=== PATIENT | male | born 1950 | race African-American/Black ===

== ENCOUNTER 2017-03-01 14:17 | Emergency (ER) | payer MEDICARE, MEDICAID ==
[~2017-03-01] VITALS: Ht 185.4 cm; Wt 105.0 kg
[~2017-03-01 14:17] MED LIST: MOTRIN200 MG PO
[2017-03-01] MEDS ORDERED: ABILIFY30 MG PO (15:01)
[2017-03-01] MEDS ORDERED: RISPERDAL0.5 MG PO (15:02)
[2017-03-01] MEDS ORDERED: OMEPRAZOLE10 MG PO (15:02)
[2017-03-01 15:11] LABS: HEMATOCRIT 38.8 % (39.0-50.0); HEMOGLOBIN 12.5 g/dl (14.0-18.0); IMMATURE GRANULOCYTES 0.5 % (0.0-1.0); MEAN CORPUSCULAR HGB CONC 32.2 g/L CALC (32.0-36.0); NEUT# 10.07 thou/uL (1.82-7.42); RED BLOOD COUNT 4.46 mill/uL (4.70-6.10)
[2017-03-01 15:23] LABS: ALBUMIN 3.4 g/dL (3.2-5.0); ALKALINE PHOSPHATASE 132 u/l (38-126); ANION GAP 12 (6-22 (CALC)); BILIRUBIN, TOTAL 0.7 mg/dL (0.0-1.4); BUN 11 mg/dL (8-23); BUN/CREATININE RATIO 17 (12-20 (CALC)); CALCIUM 8.6 mg/dL (8.4-10.2); CARBON DIOXIDE 34 mmol/l (22-30); CHLORIDE 99 mmol/l (95-108); CREATININE 0.7 mg/dL (0.7-1.3); GFR > 60 ML/MIN (>=60 (CALC)); GFR FOR AFR.AMER. > 60 ML/MIN (>=60 (CALC)); GLUCOSE 109 mg/dL (82-115); POTASSIUM 3.5 mmol/l (3.5-5.1); SGOT/AST 31 u/l (19-48); SGPT/ALT 27 u/l (11-66); SODIUM 141 mmol/l (137-146); TOTAL PROTEIN 6.9 g/dL (6.3-8.2)
[2017-03-01 15:36] LABS: MYOGLOBIN 28 ng/mL (0 - 121)
[2017-03-01 18:40] VITALS: BP 118/75
== END 2017-03-01 19:00 | disposition short-term general hospital (02) ==
LOC: ED 14:17
PROVIDERS: Emergency Medicine
DX: R91.8 Other nonspecific abnormal finding of lung field (principal); R09.02 Hypoxemia; R94.31 Abnormal electrocardiogram [ECG] [EKG]; R06.02 Shortness of breath; F17.200 Nicotine dependence, unspecified, uncomplicated; J90 Pleural effusion, not elsewhere classified
CPT/HCPCS: Q9967

== ENCOUNTER 2017-09-15 20:58 | Emergency (ER) | payer MEDICARE, MEDICAID ==
[~2017-09-15] VITALS: Ht 185.4 cm; Wt 94.2 kg
[~2017-09-15 20:58] MED LIST changes: +ABILIFY30 MG PO; +OMEPRAZOLE10 MG PO; +RISPERDAL0.5 MG PO
[2017-09-15] MEDS ORDERED: PROTONIX40 MG PO (22:19)
[2017-09-15] MEDS ORDERED: ZOFRAN4 M1 PO (22:19)
[2017-09-15 22:29] VITALS: BP 128/72
== END 2017-09-15 22:30 | disposition home or self-care (01) ==
LOC: ED 20:58
DX: K52.9 Noninfective gastroenteritis and colitis, unspecified (principal)

== ENCOUNTER 2017-11-03 10:44 | Emergency (ER) | payer MEDICARE, MEDICAID ==
[~2017-11-03] VITALS: Ht 185.4 cm; Wt 96.3 kg
[~2017-11-03 10:44] MED LIST changes: +PROTONIX40 MG PO; +ZOFRAN4 M1 PO
[2017-11-03] MEDS ORDERED: POLYTRIM OD (11:14)
[2017-11-03 11:25] VITALS: BP 131/73
== END 2017-11-03 11:28 | disposition home or self-care (01) ==
LOC: ED 10:44
DX: H10.9 Unspecified conjunctivitis (principal)

== ENCOUNTER 2018-03-21 22:10 | Inpatient (IN) | payer MEDICARE, MEDICAID ==
[~2018-03-21] VITALS: Ht 185.4 cm; Wt 90.7 kg
[~2018-03-21 22:10] MED LIST changes: +POLYTRIM OD
[2018-03-21] MEDS ORDERED: ABILIFY15 MG PO (22:28)
[2018-03-21] MEDS ORDERED: RISPERDAL1 MG PO (22:28)
[2018-03-21 22:57] LABS: HEMATOCRIT 44.2 % (39.0-50.0); HEMOGLOBIN 13.8 g/dl (14.0-18.0); IMMATURE GRANULOCYTES 0.3 % (0.0-1.0); MEAN CELL VOLUME 92.3 fL CALC (80.0-100.0); MEAN CORPUSCULAR HGB 28.8 pG CALC (26.0-32.0); MEAN CORPUSCULAR HGB CONC 31.2 g/L CALC (32.0-36.0); NEUT# 9.13 thou/uL (1.82-7.42); RED BLOOD COUNT 4.79 mill/uL (4.70-6.10); RED CELL DISTRI WIDTH 14.7 % (11.5-15.5)
[2018-03-21 23:07] LABS: ALBUMIN 3.7 g/dL (3.2-5.0); ALKALINE PHOSPHATASE 137 u/l (38-126); ANION GAP 8 (6-22 (CALC)); BILIRUBIN, TOTAL 0.4 mg/dL (0.0-1.4); BUN 11 mg/dL (8-23); BUN/CREATININE RATIO 17 (12-20 (CALC)); CARBON DIOXIDE 32 mmol/l (22-30); CHLORIDE 102 mmol/l (95-108); CREATININE 0.7 mg/dL (0.7-1.3); GFR > 60 ML/MIN (>=60 (CALC)); GFR FOR AFR.AMER. > 60 ML/MIN (>=60 (CALC)); SGOT/AST 18 u/l (19-48); SGPT/ALT 28 u/l (11-66); SODIUM 139 mmol/l (137-146); TOTAL PROTEIN 7.7 g/dL (6.3-8.2)
[2018-03-21 23:18] LABS: ACT PARTIAL THROMBO TIME 27.1 SECONDS (20.0-32.5); D-DIMER 10.24 mg/L (0.19-0.60); PROTHROMBIN TIME 10.8 SECONDS (9.0-12.5)
[2018-03-21 23:19] LABS: MYOGLOBIN 29 ng/mL (0 - 121)
[2018-03-22 03:40] VITALS: BP 142/88
[2018-03-22 04:53] LABS: HEMATOCRIT 45.1 % (39.0-50.0); HEMOGLOBIN 14.2 g/dl (14.0-18.0); IMMATURE GRANULOCYTES 0.4 % (0.0-1.0); MEAN CELL VOLUME 92.2 fL CALC (80.0-100.0); MEAN CORPUSCULAR HGB CONC 31.5 g/L CALC (32.0-36.0); NEUT# 8.37 thou/uL (1.82-7.42); RED BLOOD COUNT 4.89 mill/uL (4.70-6.10); RED CELL DISTRI WIDTH 14.6 % (11.5-15.5)
[2018-03-22 07:20] VITALS: BP 133/74
[2018-03-22 07:31] LABS: ANION GAP 9 (6-22 (CALC)); BUN 9 mg/dL (8-23); BUN/CREATININE RATIO 15 (12-20 (CALC)); CARBON DIOXIDE 32 mmol/l (22-30); CHLORIDE 103 mmol/l (95-108); CREATININE 0.6 mg/dL (0.7-1.3); GFR > 60 ML/MIN (>=60 (CALC)); GFR FOR AFR.AMER. > 60 ML/MIN (>=60 (CALC)); SODIUM 140 mmol/l (137-146)
[2018-03-22 07:32] LABS: POTASSIUM 3.7 mmol/l (3.5-5.1)
[2018-03-22 11:05] VITALS: BP 147/85
[2018-03-22 15:28] VITALS: BP 141/84
== END 2018-03-22 17:25 | disposition short-term general hospital (02) | DRG 176 ==
LOC: ED 22:10 → ED-I 03-22 02:20 → ED 03-22 02:38 → MS2 03-22 02:39
PROVIDERS: Family Medicine; ADMIT Internal Medicine; ATTEND Internal Medicine
DX: I26.99 Other pulmonary embolism without acute cor pulmonale (principal); C34.90 Malignant neoplasm of unspecified part of unspecified bronchus or lung; F20.0 Paranoid schizophrenia; R59.0 Localized enlarged lymph nodes; F17.210 Nicotine dependence, cigarettes, uncomplicated; F14.90 Cocaine use, unspecified, uncomplicated; M79.604 Pain in right leg; M79.89 Other specified soft tissue disorders; Z92.3 Personal history of irradiation; Z92.21 Personal history of antineoplastic chemotherapy

== ENCOUNTER 2018-05-09 14:22 | Emergency (ER) | payer MEDICARE, MEDICAID ==
[~2018-05-09] VITALS: Ht 185.4 cm; Wt 92.3 kg
[~2018-05-09 14:22] MED LIST changes: +ABILIFY15 MG PO; +RISPERDAL1 MG PO
[2018-05-09] MEDS ORDERED: PROCHLORPERAZINE5 MG PO (14:48)
[2018-05-09] MEDS ORDERED: OMEPRAZOLE10 MG PO (14:48)
[2018-05-09] MEDS ORDERED: DICLOFENAC SODI75 MG PO (14:49)
[2018-05-09] MEDS ORDERED: HYCAMTIN PO (14:50)
[2018-05-09 15:05] LABS: HEMATOCRIT 32.9 % (39.0-50.0); HEMOGLOBIN 10.3 g/dl (14.0-18.0); IMMATURE GRANULOCYTES 0.3 % (0.0-5.0); MEAN CELL VOLUME 88.4 fL CALC (80.0-100.0); MEAN CORPUSCULAR HGB 27.7 pG CALC (26.0-32.0); MEAN CORPUSCULAR HGB CONC 31.3 g/L CALC (32.0-36.0); NEUT# 5.65 thou/uL (1.82-7.42); RED BLOOD COUNT 3.72 mill/uL (4.70-6.10)
[2018-05-09 15:24] LABS: URINE BILIRUBIN - DIPSTICK NEGATIVE (NEGATIVE); URINE BLOOD DIPSTICK NEGATIVE (NEGATIVE); URINE COLOR YELLOW; URINE GLUCOSE - DIPSTICK 100 mg/dL (NEGATIVE); URINE KETONE NEGATIVE (NEGATIVE); URINE LEUK ESTERASE NEGATIVE (NEGATIVE); URINE NITRITE - DIPSTICK NEGATIVE (Negative); URINE PH 5.5 (4.5-8.0); URINE PROTEIN - DIPSTICK NEGATIVE (NEG-TRACE); URINE SPECIFIC GRAVITY 1.015; URINE UROBILINOGEN - DIPSTICK >=8.0 E.U./dL (0.2)
[2018-05-09 15:32] LABS: URINE CLARITY CLEAR
[2018-05-09 15:37] LABS: ALBUMIN 3.5 g/dL (3.2-5.0); ALKALINE PHOSPHATASE 132 u/l (38-126); ANION GAP 10 (6-22 (CALC)); BUN 11 mg/dL (8-23); BUN/CREATININE RATIO 23 (12-20 (CALC)); CARBON DIOXIDE 30 mmol/l (22-30); CHLORIDE 100 mmol/l (95-108); CREATININE 0.5 mg/dL (0.7-1.3); GFR > 60 ML/MIN (>=60 (CALC)); GFR FOR AFR.AMER. > 60 ML/MIN (>=60 (CALC)); LIPASE 33 u/l (23-300); POTASSIUM 4.2 mmol/l (3.5-5.1); SGPT/ALT 16 u/l (11-66); SODIUM 136 mmol/l (137-146)
[2018-05-09 15:38] LABS: SGOT/AST 41 u/l (19-48)
[2018-05-09] MEDS ORDERED: BENTYL10 MG PO (16:42)
[2018-05-09 16:44] VITALS: BP 104/69
== END 2018-05-09 16:57 | disposition home or self-care (01) ==
LOC: ED 14:22
PROVIDERS: Emergency Medicine
DX: R10.9 Unspecified abdominal pain (principal); C34.90 Malignant neoplasm of unspecified part of unspecified bronchus or lung; K59.00 Constipation, unspecified; F20.0 Paranoid schizophrenia; Z86.718 Personal history of other venous thrombosis and embolism; Z79.01 Long term (current) use of anticoagulants; Z79.899 Other long term (current) drug therapy

== ENCOUNTER 2018-06-03 14:48 | Inpatient (IN) | payer MEDICARE, MEDICAID ==
[~2018-06-03] VITALS: Ht 185.4 cm; Wt 98.2 kg
[~2018-06-03 14:48] MED LIST changes: +BENTYL10 MG PO; +DICLOFENAC SODI75 MG PO; +HYCAMTIN PO; +PROCHLORPERAZINE5 MG PO
[2018-06-03 16:19] LABS: HEMATOCRIT 29.9 % (39.0-50.0); HEMOGLOBIN 9.4 g/dl (14.0-18.0); IMMATURE GRANULOCYTES 3.7 % (0.0-5.0); MEAN CORPUSCULAR HGB CONC 31.4 g/L CALC (32.0-36.0); NEUT# 3.82 thou/uL (1.82-7.42); RED BLOOD COUNT 3.36 mill/uL (4.70-6.10); RED CELL DISTRI WIDTH 19.2 % (11.5-15.5)
[2018-06-03 16:39] LABS: ALBUMIN 3.9 g/dL (3.2-5.0); ALKALINE PHOSPHATASE 162 u/l (38-126); ANION GAP 13 (6-22 (CALC)); BILIRUBIN, TOTAL 1.1 mg/dL (0.0-1.4); BUN 12 mg/dL (8-23); BUN/CREATININE RATIO 21 (12-20 (CALC)); CARBON DIOXIDE 33 mmol/l (22-30); CHLORIDE 96 mmol/l (95-108); CREATININE 0.6 mg/dL (0.7-1.3); GFR > 60 ML/MIN (>=60 (CALC)); GFR FOR AFR.AMER. > 60 ML/MIN (>=60 (CALC)); POTASSIUM 3.8 mmol/l (3.5-5.1); SGOT/AST 36 u/l (19-48); SGPT/ALT 25 u/l (11-66); SODIUM 138 mmol/l (137-146); TOTAL PROTEIN 7.8 g/dL (6.3-8.2)
[2018-06-03 16:50] LABS: MYOGLOBIN 34 ng/mL (0 - 121)
[2018-06-03] MEDS ORDERED: LASIX 40 MG40 MG/TAB PO (17:33)
[2018-06-03 17:59] LABS: PROTHROMBIN TIME 11.4 SECONDS (9.0-12.5)
[2018-06-03 19:30] VITALS: BP 100/65
[2018-06-04 00:11] VITALS: BP 84/57
[2018-06-04 05:15] VITALS: BP 90/64
[2018-06-04 05:53] LABS: HEMATOCRIT 30.7 % (39.0-50.0); HEMOGLOBIN 9.4 g/dl (14.0-18.0); MEAN CORPUSCULAR HGB 27.6 pG CALC (26.0-32.0); MEAN CORPUSCULAR HGB CONC 30.6 g/L CALC (32.0-36.0); RED BLOOD COUNT 3.41 mill/uL (4.70-6.10); RED CELL DISTRI WIDTH 19.3 % (11.5-15.5)
[2018-06-04 06:19] LABS: ANION GAP 14 (6-22 (CALC)); BUN 13 mg/dL (8-23); BUN/CREATININE RATIO 19 (12-20 (CALC)); CARBON DIOXIDE 31 mmol/l (22-30); CHLORIDE 97 mmol/l (95-108); CREATININE 0.7 mg/dL (0.7-1.3); GFR > 60 ML/MIN (>=60 (CALC)); GFR FOR AFR.AMER. > 60 ML/MIN (>=60 (CALC)); POTASSIUM 3.9 mmol/l (3.5-5.1); SODIUM 138 mmol/l (137-146)
[2018-06-04 12:00] VITALS: BP 110/75
[2018-06-04 16:10] VITALS: BP 96/75
[2018-06-04 19:29] VITALS: BP 92/65
[2018-06-04 20:13] LABS: URINE BILIRUBIN - DIPSTICK NEGATIVE (NEGATIVE); URINE BLOOD DIPSTICK LARGE (NEGATIVE); URINE COLOR YELLOW; URINE GLUCOSE - DIPSTICK NEGATIVE (NEGATIVE); URINE KETONE TRACE mg/dL (NEGATIVE); URINE LEUK ESTERASE TRACE (NEGATIVE); URINE NITRITE - DIPSTICK NEGATIVE (Negative); URINE PROTEIN - DIPSTICK TRACE mg/dL (NEG-TRACE); URINE SPECIFIC GRAVITY >=1.030
[2018-06-04 20:28] LABS: URINE CLARITY CLEAR
[2018-06-04 20:41] LABS: URINE RBC TNTC RBC/hpf (0-5); URINE SQUAMOUS EPITHELIAL CELL FEW EPI/hpf (0-FEW)
[2018-06-05 00:12] VITALS: BP 98/71
[2018-06-05 04:00] VITALS: BP 94/64
[2018-06-05 06:13] LABS: HEMATOCRIT 29.2 % (39.0-50.0); IMMATURE GRANULOCYTES 2.9 % (0.0-5.0); MEAN CELL VOLUME 89.8 fL CALC (80.0-100.0); MEAN CORPUSCULAR HGB 27.7 pG CALC (26.0-32.0); MEAN CORPUSCULAR HGB CONC 30.8 g/L CALC (32.0-36.0); NEUT# 8.43 thou/uL (1.82-7.42); RED BLOOD COUNT 3.25 mill/uL (4.70-6.10); RED CELL DISTRI WIDTH 19.1 % (11.5-15.5)
[2018-06-05 06:34] LABS: ANION GAP 13 (6-22 (CALC)); BUN 13 mg/dL (8-23); BUN/CREATININE RATIO 21 (12-20 (CALC)); CARBON DIOXIDE 31 mmol/l (22-30); CHLORIDE 97 mmol/l (95-108); CREATININE 0.6 mg/dL (0.7-1.3); GFR > 60 ML/MIN (>=60 (CALC)); GFR FOR AFR.AMER. > 60 ML/MIN (>=60 (CALC)); MAGNESIUM 2.2 mg/dL (1.6-2.3); POTASSIUM 4.1 mmol/l (3.5-5.1); SODIUM 137 mmol/l (137-146)
[2018-06-05 09:15] VITALS: BP 94/59
[2018-06-05 10:51] VITALS: BP 112/72
[2018-06-05 15:33] VITALS: BP 92/63
[2018-06-05 19:00] VITALS: BP 106/73
[2018-06-06 00:42] VITALS: BP 108/68
[2018-06-06 05:22] VITALS: BP 89/58
[2018-06-06 05:43] LABS: HEMATOCRIT 30.6 % (39.0-50.0); HEMOGLOBIN 9.4 g/dl (14.0-18.0); IMMATURE GRANULOCYTES 4.2 % (0.0-5.0); MEAN CELL VOLUME 92.2 fL CALC (80.0-100.0); MEAN CORPUSCULAR HGB 28.3 pG CALC (26.0-32.0); MEAN CORPUSCULAR HGB CONC 30.7 g/L CALC (32.0-36.0); NEUT# 11.99 thou/uL (1.82-7.42); RED BLOOD COUNT 3.32 mill/uL (4.70-6.10); RED CELL DISTRI WIDTH 19.9 % (11.5-15.5)
[2018-06-06 06:20] LABS: ANION GAP 13 (6-22 (CALC)); BUN 19 mg/dL (8-23); BUN/CREATININE RATIO 28 (12-20 (CALC)); CARBON DIOXIDE 34 mmol/l (22-30); CHLORIDE 100 mmol/l (95-108); CREATININE 0.7 mg/dL (0.7-1.3); GFR > 60 ML/MIN (>=60 (CALC)); GFR FOR AFR.AMER. > 60 ML/MIN (>=60 (CALC)); MAGNESIUM 2.6 mg/dL (1.6-2.3); POTASSIUM 4.4 mmol/l (3.5-5.1); SODIUM 143 mmol/l (137-146)
[2018-06-06 08:00] VITALS: BP 100/55
[2018-06-06 11:08] VITALS: BP 93/68
[2018-06-06 15:21] VITALS: BP 110/64
[2018-06-06 19:27] VITALS: BP 101/67
[2018-06-07 00:29] VITALS: BP 93/64
[2018-06-07 04:00] VITALS: BP 92/66
[2018-06-07 07:13] VITALS: BP 104/68
[2018-06-07 11:10] VITALS: BP 85/59
[2018-06-07 16:15] VITALS: BP 95/59
[2018-06-07 19:00] VITALS: BP 91/63
== END 2018-06-07 23:38 | DRG 194 ==
LOC: ED 14:48 → ED-I 15:36 → ED 17:40 → MS2 17:41
PROVIDERS: Emergency Medicine; Nurse Practitioner Family; ADMIT Internal Medicine; ATTEND Internal Medicine
PROC: 0T9B70Z Drainage of Bladder with Drainage Device, Via Natural or Artificial Opening (ICD-10-PCS; principal; 2018-06-04)
DX: J18.9 Pneumonia, unspecified organism (principal); F20.0 Paranoid schizophrenia; I31.4 Cardiac tamponade; R64 Cachexia; I87.1 Compression of vein; C34.90 Malignant neoplasm of unspecified part of unspecified bronchus or lung; D64.9 Anemia, unspecified; R33.9 Retention of urine, unspecified; F17.210 Nicotine dependence, cigarettes, uncomplicated; K59.00 Constipation, unspecified; R26.9 Unspecified abnormalities of gait and mobility; Z86.711 Personal history of pulmonary embolism; Z91.14 Patient's other noncompliance with medication regimen; Z99.81 Dependence on supplemental oxygen; Z86.73 Personal history of transient ischemic attack (TIA), and cerebral infarction without residual deficits; Z92.21 Personal history of antineoplastic chemotherapy; Z92.3 Personal history of irradiation; Z86.718 Personal history of other venous thrombosis and embolism; Z68.26 Body mass index [BMI] 26.0-26.9, adult
CPT/HCPCS: G0378; J1650; S0164